=== PATIENT | male | born 1955 | race African-American/Black ===

== ENCOUNTER → 2017-02-08 | Outpatient (CLI) | payer BC ==
[2017-02-08 09:31] LABS: BASOPHILS % 0.4 % (0.0-2.0); EOSINOPHILS % 1.7 % (0.0-5.0); HEMATOCRIT. 41.3 % (42.0-52.0); HEMOGLOBIN. 13.6 g/dL (14.0-18.0); LYMPHOCYTES % 33.5 % (20.0-50.0); MEAN CORPUSCULAR HEMOGLOBIN 26.5 pg (28.0-32.0); MEAN CORPUSCULAR VOLUME 80.7 fL (80.0-94.0); MEAN PLATELET VOLUME 8.1 fl (7.4-10.4); NEUTROPHILS % 54.4 % (40.0-76.0); PLATELET 250 x1000/uL (130-400); RED BLOOD CELL COUNT 5.12 mill/uL (4.7-6.1); RED CELL DISTRIBUTION WIDTH 15.4 % (11.6-14.6)
[2017-02-08 10:03] LABS: CARBON DIOXIDE 27 mEq/L (21-32); CHLORIDE 106 mEq/L (98-107); HDL CHOLESTEROL 63 mg/dL (40-59); LDL CHOLESTEROL 135 mg/dL (5-100); T4 FREE 0.82 ng/dL (0.76-1.46)
== END | disposition home or self-care (01) ==
LOC: LAB 08:57
DX: I11.9 Hypertensive heart disease without heart failure (principal); R73.03 Prediabetes
CPT/HCPCS: 36415; 80053; 80061; 82270; 82306; 83036; 84153; 84439; 84443; 84481; 85025

== ENCOUNTER → 2020-04-05 | Outpatient (CLI) | payer BC ==
[2020-04-05 11:14] LABS: CHLORIDE 107 mEq/L (98-107)
[2020-04-05 11:22] LABS: LDL CHOLESTEROL 159 mg/dL (5-100)
[2020-04-05 11:23] LABS: HDL CHOLESTEROL 69 mg/dL (40-59)
[2020-04-06 04:07] LABS: PSA FREE 0.42 ng/mL; VITAMIN D 25-OH 26.2 ng/mL (30.0-100.0)
== END | disposition home or self-care (01) ==
LOC: LAB 10:27
DX: I11.9 Hypertensive heart disease without heart failure (principal); M54.5 Low back pain; M75.52 Bursitis of left shoulder; Z91.14 Patient's other noncompliance with medication regimen
CPT/HCPCS: 36415; 80053; 80061; 82306; 83036; 84153; 84154; 84443

== ENCOUNTER → 2020-04-19 | Outpatient (CLI) | payer BC | END | disposition home or self-care (01) | LOC: RAD 11:44 | DX: M47.816 Spondylosis without myelopathy or radiculopathy, lumbar region (principal); M48.061 Spinal stenosis, lumbar region without neurogenic claudication; M16.0 Bilateral primary osteoarthritis of hip; M25.851 Other specified joint disorders, right hip | CPT/HCPCS: 72110; 73522 ==

== ENCOUNTER 2022-01-09 16:11 | Emergency (ER) | payer BC ==
[~2022-01-09] VITALS: Ht 190.5 cm; Wt 116.0 kg
[2022-01-09] MEDS ORDERED: HYDRALAZINE 20MG/ML VIAL IV ONE (17:15)
[2022-01-09 17:41] LABS: BASOPHILS % 0.6 % (0.0-2.0); EOSINOPHILS % 1.2 % (0.0-5.0); HEMATOCRIT. 39.9 % (42.0-52.0); HEMOGLOBIN. 13.3 g/dL (14.0-18.0); LYMPHOCYTES % 43.1 % (20.0-50.0); MEAN CORPUSCULAR HEMOGLOBIN 26.9 pg (28.0-32.0); MEAN CORPUSCULAR VOLUME 80.6 fL (80.0-94.0); MEAN PLATELET VOLUME 9.4 fl (7.4-10.4); MONOCYTES % 11.9 % (2.0-8.0); NEUTROPHILS % 43.2 % (40.0-76.0); PLATELET 245 x1000/uL (130-400); RED BLOOD CELL COUNT 4.95 mill/uL (4.7-6.1); RED CELL DISTRIBUTION WIDTH 15.6 % (11.6-14.6)
[2022-01-09 17:45] LABS: CHLORIDE 110 mEq/L (98-107)
[2022-01-09] MEDS ORDERED: MORPHINE SULFATE 4 MG/ML CPJ (NOT FOR IM USE) IV ONE ×2 (17:45→22:00)
[2022-01-09] MEDS ORDERED: ESMOLOL 2500MG PREMIX 250 ML IV ONE ×3 (18:00→23:00)
[2022-01-09] MEDS ORDERED: HYDROMORPHONE HCL/PF 2MG/ML CPJ IV ONE (18:15)
[2022-01-09] MEDS ORDERED: IOHEXOL-350 100 ML BOTTLE ONE (18:17)
[2022-01-09] MEDS: ESMOLOL 2500MG PREMIX 250 ML IV NR ×2 (19:05→20:59)
[2022-01-09 19:29] LABS: INR 1.1; PROTHROMBIN TIME 11.4 sec (9.6-11.0)
[2022-01-09] MEDS ORDERED: FENTANYL CITRATE/PF 50MCG/ML 2ML VIAL IV ONE (20:00)
[2022-01-09] MEDS ORDERED: NICARDIPINE 40MG/200ML PREMIX 200 ML IV STA (20:42)
[2022-01-09] MEDS ORDERED: NITROPRUSSIDE 100 MG in DEXT 5% WATER 246 ML IV PRN (21:00)
[2022-01-09] MEDS ORDERED: NITROGLYCERIN 50MG PREMIX 250 ML IV PRN (21:15)
[2022-01-10] MEDS ORDERED: MORPHINE SULFATE 4 MG/ML CPJ (NOT FOR IM USE) IV ONE
[2022-01-10] MEDS ORDERED: ESMOLOL 2500MG PREMIX 250 ML IV ONE (00:30)
[2022-01-10] MEDS ORDERED: NICARDIPINE 100 MG in SODIUM CHLORIDE 0.9% 60 ML IV PRN (01:00)
[2022-01-10] MEDS ORDERED: NITROGLYCERIN 50MG PREMIX 250 ML IV ONE (01:00)
[2022-01-10] MEDS ORDERED: HYDROMORPHONE HCL/PF 2MG/ML CPJ IV ONE (01:00)
[2022-01-10] MEDS ORDERED: NICARDIPINE 40 MG/200 ML PREMIX 200 ML IV PRN (01:45)
[2022-01-10 02:10] VITALS: BP 176/94
[2022-01-10] MEDS ORDERED: HYDROMORPHONE HCL/PF 2MG/ML CPJ IV NR (02:15)
== END 2022-01-10 02:27 | disposition short-term general hospital (02) ==
LOC: ER 16:11 → CANBEDREQ 01-10 14:53
DX: R07.89 Other chest pain (principal); M79.662 Pain in left lower leg; G83.9 Paralytic syndrome, unspecified; I16.1 Hypertensive emergency; I10 Essential (primary) hypertension; Z20.822 Contact with and (suspected) exposure to COVID-19
CPT/HCPCS: 36415; 71045; 71275; 74174; 80053; 83880; 84484; 85025; 85610; 87426; 93005; 93970; 96365; 96375; 96376; 99285; C9803; J0360; J1170; J2270; J3010; J3490; Q9967; Z7610